=== PATIENT | male | born 1990 | race Caucasian/White ===

== ENCOUNTER 2018-11-26 16:29 | Emergency (ER) ==
--- NOTE | 2018-11-26 18:14 | RAD ---
RIGHT HAND: 11/26/18 Three views. HISTORY: Injury to hand. Carpals appear unremarkable. Metacarpals and phalanges appear intact. IMPRESSION: No acute fracture identified. POS: [facility]
== END 2018-11-26 17:50 | disposition home or self-care (01) ==
LOC: ERS 16:29
DX: S61.212A Laceration without foreign body of right middle finger without damage to nail, initial encounter (principal); W25.XXXA Contact with sharp glass, initial encounter

== ENCOUNTER 2019-02-13 14:34 | Emergency (ER) | payer SELFPAY ==
[2019-02-13 15:00] LABS: Hemoglobin 15.4 g/dL (14.0-18.0); Mean Corpuscular Hemoglobin 30.2 pg (27.0-31.0); Mean Corpuscular Volume 88.6 fL (78.0-98.0); Mean Platelet Volume 5.6 fL (7.4-10.4); Platelet Count 414 thou/uL (130-400); RBC Distribution Width 13.1 % (11.5-14.5); Red Blood Cell (RBC) Count 5.11 mill/uL (4.70-6.10); White Blood Cell (WBC) Count 25.4 thou/uL (4.8-10.8)
--- NOTE | 2019-02-13 15:14 | RAD ---
PORTABLE CHEST ONE VIEW: 02/13/2019 2:52 p.m. HISTORY: Chest pain. FINDINGS: The heart size is normal. The lungs are expanded without focal areas of consolidation, pneumothorace s, or pleural effusions. IMPRESSION: No radiographic evidence of acute cardiopulmonary process. POS: [facility]
[2019-02-13 15:21] LABS: ALT (SGPT) 72 U/L (8-55); AST (SGOT) 130 U/L (5-34); Albumin 5.4 g/dL (3.5-5.0); Alkaline Phosphatase 90 U/L (40-150); Anion Gap 22 mmol/L (10-20); BUN (Urea Nitrogen) 27 mg/dL (8.9-20.6); Bilirubin, Total 1.8 mg/dL (0.2-1.2); Calc. Creatinine Clearance 0 mL/min (70-130); Calcium 10.1 mg/dL (7.8-10.44); Carbon Dioxide 22 mmol/L (22-29); Chloride 97 mmol/L (98-107); Estimated GFR-MDRD 46; Globulin 2.5 g/dL (2.4-3.5); Glucose 91 mg/dL (70-105); Lipase 23 U/L (8-78); Potassium 4.7 mmol/L (3.5-5.1); Protein, Total 7.9 g/dL (6.0-8.3); Sodium 136 mmol/L (136-145)
[2019-02-13 15:29] LABS: Band 12 % (5-11); Lymphocytes 6 % (21-51); MDiff Complete? YES; Monocytes 6 % (0-10); Neutrophil 76 % (42-75); Platelet Morphology Comment Appears Increased; Polychromasia SLIGHT = 2-3 cells (100X) (0-2/hpf)
[2019-02-13 15:33] LABS: CK (CPK) 5041 U/L (30-200)
[2019-02-13 15:48] LABS: CKMB 26.7 ng/mL (0-6.6)
--- NOTE | 2019-02-13 16:16 | ULT ---
RIGHT UPPER QUADRANT ULTRASOUND: 02/13/19 HISTORY: Abdominal pain. FINDINGS: The liver, gallbladder, right kidney and pancreas appear normal. The common duct measures 3 mm in winnie meter. No free fluid is seen in Le's pouch. IMPRESSION: Normal exam. POS: [facility]
[2019-02-13] MEDS ORDERED: hydrOXYzine 25 MG TAB ONE (16:18)
[2019-02-13 19:01] LABS: #Lymphocytes 2.6 thou/uL (1.20-3.40); #Monocytes 1.3 thou/uL (0.11-0.59); #Neutrophils 13.5 thou/uL (1.40-6.50); %Basophils 0.1 % (0.0-1.0); %Eosinophils 0.3 % (0.0-10.0); %Monocytes 7.3 % (0.0-10.0); %Neutrophils 77.2 % (42.0-75.0); Hemoglobin 13.6 g/dL (14.0-18.0); Mean Corpuscular HGB CONC 36.1 g/dL (32.0-36.0); Mean Corpuscular Volume 88.7 fL (78.0-98.0); Mean Platelet Volume 5.7 fL (7.4-10.4); Platelet Count 361 thou/uL (130-400); RBC Distribution Width 12.8 % (11.5-14.5); Red Blood Cell (RBC) Count 4.26 mill/uL (4.70-6.10); White Blood Cell (WBC) Count 17.5 thou/uL (4.8-10.8)
[2019-02-13 19:06] LABS: Bacteria/HPF None Seen HPF (None Seen); Bilirubin Negative (Negative); Blood, Urine Trace (Negative); Clarity Turbid (Clear); Glucose, Urine (Dipstick) Normal (Negative); Leukocyte 25 Leu/uL (Negative); Nitrite Negative (Negative); Protein, Urine (Dipstick) 30 mg/dL (Neg-Trace); RBC/HPF 0-3 HPF (0-3); Squamous Epithelial 0-3 HPF (0-3); Urobilinogen Normal mg/dL (Less than 2); WBC/HPF 21-50 HPF (0-3)
[2019-02-13 19:27] LABS: ALT (SGPT) 58 U/L (8-55); AST (SGOT) 96 U/L (5-34); Albumin 4.2 g/dL (3.5-5.0); Alkaline Phosphatase 70 U/L (40-150); Anion Gap 15 mmol/L (10-20); BUN (Urea Nitrogen) 27 mg/dL (8.9-20.6); Bilirubin, Total 1.4 mg/dL (0.2-1.2); CK (CPK) 3487 U/L (30-200); Calc. Creatinine Clearance 0 mL/min (70-130); Calcium 8.6 mg/dL (7.8-10.44); Carbon Dioxide 22 mmol/L (22-29); Chloride 107 mmol/L (98-107); Estimated GFR-MDRD 69; Glucose 137 mg/dL (70-105); Potassium 3.6 mmol/L (3.5-5.1); Protein, Total 6.2 g/dL (6.0-8.3); Sodium 140 mmol/L (136-145); Troponin I 0.072 ng/mL (< 0.028)
[2019-02-16 04:53] LABS: Chlam.trachomatis by PCR,Urine DETECTED (NotDetected)
== END 2019-02-13 20:20 | disposition home or self-care (01) ==
LOC: ERS 14:34
DX: R07.2 Precordial pain (principal); F41.9 Anxiety disorder, unspecified; F32.9 Major depressive disorder, single episode, unspecified
CPT/HCPCS: 36415; 71045; 76705; 80053; 81003; 81015; 82550; 82553; 83690; 83880; 84484; 85025; 87086; 87491; 87591; 93005; 96360; 96361

== ENCOUNTER 2019-07-20 22:57 | Inpatient (IN) | payer SELFPAY ==
[2019-07-20 23:34] LABS: Bacteria/HPF None Seen HPF (None Seen); Bilirubin Negative (Negative); Blood, Urine Negative (Negative); Clarity Extra Turbid (Clear); Glucose, Urine (Dipstick) Normal (Negative); Leukocyte Negative Leu/uL (Negative); Nitrite Negative (Negative); Protein, Urine (Dipstick) 30 mg/dL (Neg-Trace); RBC/HPF 0-3 HPF (0-3); Squamous Epithelial None Seen HPF (0-3); Urobilinogen Normal mg/dL (Less than 2)
[2019-07-20 23:37] LABS: #Basophils 0.1 thou/uL (0.0-0.2); #Eosinphils 0.2 thou/uL (0.0-0.7); #Lymphocytes 2.8 thou/uL (1.20-3.40); #Monocytes 1.1 thou/uL (0.11-0.59); #Neutrophils 7.1 thou/uL (1.40-6.50); %Basophils 0.5 % (0.0-1.0); %Eosinophils 1.5 % (0.0-10.0); %Lymphocytes 24.9 % (21.0-51.0); %Monocytes 9.6 % (0.0-10.0); %Neutrophils 63.5 % (42.0-75.0); Hemoglobin 16.3 g/dL (14.0-18.0); Mean Corpuscular HGB CONC 33.5 g/dL (32.0-36.0); Mean Corpuscular Hemoglobin 29.5 pg (27.0-31.0); Mean Corpuscular Volume 88.2 fL (78.0-98.0); Mean Platelet Volume 5.6 fL (7.4-10.4); Platelet Count 416 thou/uL (130-400); RBC Distribution Width 13.3 % (11.5-14.5); Red Blood Cell (RBC) Count 5.52 mill/uL (4.70-6.10); White Blood Cell (WBC) Count 11.2 thou/uL (4.8-10.8)
--- NOTE | 2019-07-20 23:42 | RAD ---
Exam:2 views right elbow HISTORY: Evaluate for foreign body COMPARISON: None FINDINGS: No joint effusion. Preserved joint spaces. No fracture. No malalignment. On the lateral pro jection, there does appear to be a linear density in the soft tissues at the level of the antecubital fossa measuring 0.5 cm. Possibility of a small metallic foreign body is raised IMPRESSION: Possible small metallic foreign body as described above.
[2019-07-20 23:53] LABS: WBC/HPF 0-3 HPF (0-3)
[2019-07-20 23:54] LABS: Manual Microscopic Reviewed? No Path Casts Seen
[2019-07-20 23:55] LABS: Acetaminophen Less than 6.0 mcg/mL (10.0-30.0); Alcohol Less than 10 mg/dL (Less than 10); Salicylate Less than 8.0 mg/dL (15.0-30.0)
[2019-07-20 23:56] LABS: ALT (SGPT) 33 U/L (8-55); AST (SGOT) 74 U/L (5-34); Albumin 5.1 g/dL (3.5-5.0); Alkaline Phosphatase 92 U/L (40-110); Anion Gap 15 mmol/L (10-20); BUN (Urea Nitrogen) 14 mg/dL (8.9-20.6); CK (CPK) 3220 U/L (30-200); Calc. Creatinine Clearance 0 mL/min (70-130); Calcium 10.1 mg/dL (7.8-10.44); Carbon Dioxide 27 mmol/L (22-29); Chloride 101 mmol/L (98-107); Estimated GFR-MDRD 82; Glucose 98 mg/dL (70-105); Potassium 3.7 mmol/L (3.5-5.1); Protein, Total 8.1 g/dL (6.0-8.3); Sodium 139 mmol/L (136-145)
[2019-07-20 23:58] LABS: Amphetamine Detected (NotDetected); Medtox Reader # READER 1; Methamphetamine Detected (NotDetected); THC/Cannabinoid Screen Detected (NotDetected)
[2019-07-20 23:59] LABS: Barbiturates Screen Not Detected (NotDetected); Benzodiazepine Screen Not Detected (NotDetected); Cocaine Metabolite Screen Not Detected (NotDetected); Medtox Control Line Valid? VALID (VALID); Methadone Not Detected (NotDetected); Opiate Screen Not Detected (NotDetected); Oxycodone Screen Not Detected (NotDetected); Phencyclidine (PCP) Not Detected (NotDetected); Tricyclic Screen Not Detected (NotDetected)
[2019-07-21 11:03] VITALS: BMI 19.8
[2019-07-21] MEDS ORDERED: Senokot S 8.6-50 MG TAB PO PRN (11:15)
[2019-07-21] MEDS ORDERED: Ondansetron PF 4 MG/2 ML Vial IVP PRN (11:15)
[2019-07-21] MEDS ORDERED: Bisacodyl 5 MG TAB PO PRN (11:15)
[2019-07-21] MEDS ORDERED: Loperamide HCl 2 MG CAP PO PRN (11:15)
[2019-07-21] MEDS ORDERED: Loperamide HCl 2 MG CAP PO SCH (11:30)
[2019-07-21] MEDS: Sodium Chloride 0.9% 1,000 ML IV SCH ×3 (15:38→23:53)
--- NOTE | 2019-07-21 15:51 | PDOC.HHP ---
Hospitalist HPI - History of Present Illness suicidal ideation History of Present Illness: This is a 28 year old male with history of depression who tried to commit suicide yesterday but injecting bleach and amphetamine into right arm yesterday morning. A couple hours later the patient states he had pain in his right arm and wasn't able to lift it up for a few hours. He also reports back pain that started yesterday as well that is still present. along with numbness in his legs and mild difficulty walking. He denies trouble urinating or defecating. He decided to come to the ER this morning because he was afraid that he had an infection going to his blood stream. He has some dizziness and lightheadedness. He also reports chills today. He denies sore throat or runny nose. THe patient currently has pain in his arm about 7/10. The patient has had previous suicide attempt in the past but not through injection. He was admitted to psychiatric facility and was prescribed buspar and trazodone but patient discontinued it on its own. He does not have psychiatrist or PCP. He states he has been feeling hopeless about life recently , is unemployed and is tired of hanging with the same crowd and injecting methamphetamine but he feels it is the only thing that keeps him alert. He has lost 10 pounds, reports normal appetite, denies excessive sleeping. ED Course: In the ED, labs showed CK level > 3000, WBC 11.2. Chest Xray was normal. EKG showed prolonged QT. Elbow Xray showed possible metallic foreign body. [facility] was consulted and recommended admission until medically cleared. Utox was positive for amphetamine, methamphetamine, and marijuana Hospitalist ROS - Review of Systems Constitutional: reports: chills Respiratory: reports: shortness of breath. denies: cough Cardiovascular: denies: chest pain, palpitations Gastrointestinal: reports: abdominal pain, other (one loose stool) Musculoskeletal: reports: arm pain (right arm), back pain. denies: neck pain, shoulder pain Skin: denies: rash, lesions, elisa Neurological: reports: numbness (in lower extremities). denies: weakness - Medication Medications: Active Medications Generic Name Dose Route Start Last Admin Trade Name Freq PRN Reason Stop Dose Admin Sodium Chloride 1,000 mls @ 250 mls/hr 07/21/19 15:15 07/21/19 15:38 Normal Saline 0.9% IV 1,000 mls .Q4H ELIZA Administration Hospitalist History - Past Medical History Other Medical History: None - Past Surgical History Other Surgical History: None - Family History Other Family History: Diabetes Dad has heart problems - Social History Tobacco Type: chewing tobacco (for over ten years) Alcohol: reports: Heavy (6-8 beers everyday) Drugs: reports: methamphetamine (patient uses three or four times a month. Also smokes it. Been doing it for years) Occupation: Currently not working. Patient dropped out after 5 months of college - Exam General Appearance: NAD, awake alert Eye: PERRL, anicteric sclera ENT: normocephalic atraumatic, no oropharyngeal lesions Neck: supple, no JVD Heart: RRR, no murmur, no gallops, no rubs Respiratory: CTAB, no wheezes, no rales, no ronchi Gastrointestinal: soft, non-tender, non-distended, normal bowel sounds, no palpable masses Extremities: no cyanosis, no clubbing, no edema Skin: normal turgor, no lesions, no rashes Neurological: normal sensation to touch, no focal deficits, no new deficit Musculoskeletal: normal tone, normal strength, no muscle wasting Hospitalist Results - Labs Result Diagrams: 07/20/19 23:27 07/20/19 23:27 Lab results: WBC 11.2 thou/uL (4.8-10.8) H 07/20/19 23:27 Hgb 16.3 g/dL (14.0-18.0) 07/20/19 23:27 Hct 48.7 % (42.0-52.0) 07/20/19 23:27 MCV 88.2 fL (78.0-98.0) 07/20/19 23:27 Plt Count 416 thou/uL (130-400) H 07/20/19 23:27 Neutrophils % 63.5 % (42.0-75.0) 07/20/19 23:27 Sodium 139 mmol/L (136-145) 07/20/19 23:27 Potassium 3.7 mmol/L (3.5-5.1) 07/20/19 23:27 Chloride 101 mmol/L (98-107) 07/20/19 23:27 Carbon Dioxide 27 mmol/L (22-29) 07/20/19 23:27 BUN 14 mg/dL (8.9-20.6) 07/20/19 23:27 Creatinine 1.07 mg/dL (0.7-1.3) 07/20/19 23:27 Glucose 98 mg/dL (70-105) 07/20/19 23:27 Calcium 10.1 mg/dL (7.8-10.44) 07/20/19 23:27 Total Bilirubin 1.0 mg/dL (0.2-1.2) 07/20/19 23:27 AST 74 U/L (5-34) H 07/20/19 23:27 ALT 33 U/L (8-55) 07/20/19 23:27 Alkaline Phosphatase 92 U/L (40-110) 07/20/19 23:27 Creatine Kinase 2138 U/L (30-200) H 07/21/19 05:44 Serum Total Protein 8.1 g/dL (6.0-8.3) 07/20/19 23:27 Albumin 5.1 g/dL (3.5-5.0) H 07/20/19 23:27 Urine Ketones Negative mg/dL (Negative) 07/20/19 23:08 Urine Blood Negative (Negative) 07/20/19 23:08 Urine Nitrite Negative (Negative) 07/20/19 23:08 Ur Leukocyte Esterase Negative Melida/uL (Negative) 07/20/19 23:08 Urine RBC 0-3 HPF (0-3) 07/20/19 23:08 Urine WBC 0-3 HPF (0-3) 07/20/19 23:08 Ur Squamous Epith Cells None Seen HPF (0-3) 07/20/19 23:08 Urine Bacteria None Seen HPF (None Seen) 07/20/19 23:08 - EKG Interpretation EKG: incomplete RBBB, prolonged QT Hospitalist H&P A/P - Plan Plan: This is 28 year old male who tried to commit suicide by injecting bleach and amphetamine into his right arm, admitted for rhabdo Rhabdomyolysis - CK level downtrending to 2138. Continue IV fluids 250/hour - check CK level in am Transaminitis - likely from rhabdo - check hepatitis panel #Methamphetamine abuse #Depression with suicidal ideation #Tobacco abuse #Alcohol abuse #Marijuana abuse - will place on ROMIE protocol - start thiamine and folic acid - [facility] consulted, patient will most likely go to inpatient psych - defer antidepressant to [facility] - check HIV test Metallic foreign body in right elbow - general surgery consulted, nothing to do for onw Leukocytosis - WBC 11.2, will recheck in am, chest X ray and UA normal Code status: full code
[2019-07-21] MEDS ORDERED: Acetaminophen 325 MG TAB PO PRN (15:54)
[2019-07-21 17:46] LABS: HBCM Index 0.09 S/CO (0-0.79); HIV (1/2) Antibody/Antigen Non-Reactive (NonReactive); HIV 1/2 INDEX 0.12 S/CO (<1.00); Hep A IgM AB Non-Reactive (NonReactive); Hep A IgM S/CO 0.09 S/CO (0-0.79); Hep B Surf Ag Non-Reactive S/CO (NonReactive); Hep C IgG Ab Non-Reactive (NonReactive); Hep C Index 0.13 S/CO (0-0.79); Hepatitis B Core IgM Abs Non-Reactive (NonReactive)
[2019-07-21] MEDS: Lorazepam 1 MG TAB PO PRN ×2 (18:06→22:31)
--- NOTE | 2019-07-21 23:03 | CON ---
DATE OF CONSULTATION: HISTORY OF PRESENT ILLNESS: We are seeing the patient in consultation for a small metallic foreign body in his left antecubital fossa. The patient reportedly was attempting to harm himself and used a damaged insulin needle to attempt to inject something into his vein, he was not successful. When he removed the syringe, the needle broke off and left behind a 5 mm small foreign body. The patient has no pain at the site. No redness, erythema, or discharge. The patient has had no reported fevers. PHYSICAL EXAMINATION: VITAL SIGNS: Stable. The patient is afebrile. GENERAL: The patient is very pleasant and was very relieved when I told him that this did not require any surgery and he was not in danger of it embolizing to anywhere. EXTREMITIES: The right forearm and antecubital fossa are nontender. Again, the patient has full range of motion without difficulty. He is neurovascularly intact distally. The patient did have his IV catheter placed on that side, which did not appear to be causing him any difficulty either. The foreign body is not palpable. IMAGING: Radiograph showed a possible small metallic foreign body measuring 0.5 cm. T ASSESSMENT: Retained small foreign body and right antecubital fossa. PLAN: 1. Conservative management. 2. Continue observation of the site. If any evidence of infection, we can be notified. 3. His radiographs were reviewed by myself and Dr. Blank and agree that it is extremely superficial, though with the very small size of it, likely being a 27-gauge or possibly 30-gauge caliber needle, attempting to retrieve this could be extensive and the risks do not outweigh the benefit. Again, this was discussed with the patient who was relieved that surgical intervention was not needed. 4. We can be reconsulted any time should the need arise. Job ID: [id number] [facility]
[2019-07-22] MEDS: Sodium Chloride 0.9% 1,000 ML IV SCH ×5 (03:54→19:24)
[2019-07-22 06:13] LABS: #Eosinphils 0.2 thou/uL (0.0-0.7); #Lymphocytes 2.7 thou/uL (1.20-3.40); #Monocytes 0.6 thou/uL (0.11-0.59); #Neutrophils 4.7 thou/uL (1.40-6.50); %Basophils 0.3 % (0.0-1.0); %Eosinophils 2.2 % (0.0-10.0); %Monocytes 7.7 % (0.0-10.0); %Neutrophils 56.8 % (42.0-75.0); Hemoglobin 13.1 g/dL (14.0-18.0); Mean Corpuscular HGB CONC 32.7 g/dL (32.0-36.0); Mean Corpuscular Hemoglobin 29.3 pg (27.0-31.0); Mean Corpuscular Volume 89.5 fL (78.0-98.0); Mean Platelet Volume 5.8 fL (7.4-10.4); Platelet Count 271 thou/uL (130-400); RBC Distribution Width 13.4 % (11.5-14.5); Red Blood Cell (RBC) Count 4.48 mill/uL (4.70-6.10); White Blood Cell (WBC) Count 8.3 thou/uL (4.8-10.8)
[2019-07-22 06:22] LABS: Anion Gap 9 mmol/L (10-20); BUN (Urea Nitrogen) 11 mg/dL (8.9-20.6); Calc. Creatinine Clearance 154 mL/min (70-130); Calcium 7.9 mg/dL (7.8-10.44); Carbon Dioxide 24 mmol/L (22-29); Chloride 111 mmol/L (98-107); Estimated GFR-MDRD Greater than 90; Glucose 95 mg/dL (70-105); Potassium 3.9 mmol/L (3.5-5.1); Sodium 140 mmol/L (136-145)
[2019-07-22] MEDS: Folic Acid 1 MG TAB PO SCH (08:03)
[2019-07-22] MEDS: Thiamine 100 MG TAB PO SCH (08:04)
[2019-07-22 08:28] LABS: Iron 55 ug/dL (65-175); Iron Binding Capacity, Total 249 mcg/dL (261-462)
[2019-07-22 08:57] LABS: Ferritin 129.94 ng/mL (22-322)
[2019-07-22] MEDS ORDERED: FLU VACC QS2019-20(6MOS UP)/PF 60 MCG/0.5 ML SYRINGE IM ONE (09:00)
--- NOTE | 2019-07-22 13:58 | DIS ---
DATE OF ADMISSION: 07/21/2019 DATE OF DISCHARGE: 07/21/2019 DISCHARGE DIAGNOSES: Suicidal ideation, rhabdomyolysis, leukocytosis, B12 deficiency anemia, folate-deficiency anemia, amphetamine abuse, alcohol abuse, tobacco abuse, presence of metallic foreign body in right antecubital fossa. CONSULTATIONS: Frankie Puckett with General surgery, [facility]. PROCEDURES: None. BRIEF HISTORY OF PRESENT ILLNESS: This is a 28-year-old male with a past medical history of depression, alcohol abuse, tobacco abuse, amphetamine abuse, marijuana abuse, who presented to the emergency room after a suicide attempt. The patient states that he had injected bleach and amphetamine into his right arm. A few hours later, he was unable to lift up his arm. He also had reported back pain along with numbness in his legs and difficulty walking. He presented to the ER due to fears that he had an infection going to his blood stream. The patient reports previous suicide attempt in the past and was hospitalized at a psychiatric facility. He was supposed to be taking BuSpar and trazodone, however, discontinued these on his own. He does not have any PCP. Upon presentation to the ER, the patient had a CK level greater than 3000, white blood cell count of 11.2, normal chest x-ray. His elbow x-ray showed a possible metallic foreign body in the antecubital fossa. The patient's U-tox was positive for amphetamine, methamphetamine, and marijuana. The patient was admitted for rhabdomyolysis. HOSPITAL COURSE: Rhabdomyolysis: The patient had a CK level of greater than 3000 on admission, he was hydrated with IV fluids at 250/hour. Repeat CK on the day of discharge is 595. The patient was encouraged to drink 2 L of fluid a day. IV fluids were discontinued. The patient has adequate urine output. Transaminitis: The patient had an AST of 74 on admission. This is most likely secondary to rhabdomyolysis. The patient denied any abdominal pain, nausea, or vomiting. Hepatitis panel was checked, which was normal. This could be repeated as this also may be secondary to alcohol abuse given that his AST to ALT ratio is greater than 2:1. This can be followed with his PCP as an outpatient. Methamphetamine abuse/depression with suicidal ideation/tobacco abuse/alcohol abuse/marijuana abuse: The patient was admitted for suicidal ideation. He reports smoking half a pack of cigarettes a day. He drinks 6 to 8 beers daily. He also injects and smokes methamphetamine 2 to 4 times a month. The patient had a U-tox done, which tested positive for marijuana, amphetamine, and methamphetamine. He was started on ASE protocol and did not have any withdrawal symptoms. He was started on thiamine and folic acid empirically. TSH was normal. [facility] was consulted and the patient will be discharged to an inpatient psych facility. Patient still reported suicidal ideation on discharge. HIV testing was done and was negative. Metallic foreign body in the right elbow: General Surgery was consulted due to findings of foreign body on his elbow x-ray. This was not palpable on exam, therefore, they did not feel there was any utility in surgically intervening and looking for it. This should most likely be resorbed by the body on its own, however, there is no guarantee that the needle may not move. If the patient were to develop any signs of hypotension, excessive bleeding, then the patient should be brought back to the ER for concern of an arterial puncture. Leukocytosis: The patient had a white count of 11.2, which came down to 8.3 on the day of discharge. There were no signs of infection. UA was negative. Folate and B12 deficiency anemia: The patient had a hemoglobin of 13.1 on the . Folate level was 3.4. Vitamin B12 was 209. The patient will be discharged on vitamin B12 and folate supplements. He should follow up with PCP and have these levels rechecked in a month. DISCHARGE PHYSICAL EXAMINATION: VITAL SIGNS: Temperature 97.3, heart rate 50, respiratory rate 16, O2 saturation 98% on room air, and blood pressure 121/73. GENERAL: The patient is alert, awake, and oriented x3. He does have a flat affect. CVS: Regular rate and rhythm with no murmurs, rubs, or gallops. LUNGS: Clear to auscultation bilaterally. ABDOMEN: Positive bowel sounds, soft, nontender, and nondistended. EXTREMITIES: No edema. ARMS: There is no palpable mass felt in his elbow. NEUROLOGIC: Cranial nerves 2 through 12 are intact. The patient has 5/5 strength in his upper and lower extremities and normal sensation in all 4 extremities. DISCHARGE INSTRUCTIONS: The patient will be discharged to an inpatient psych facility at [facility]. He should follow up with his PCP in a week and have his vitamin B12 and folate levels rechecked. He should also have repeat LFTs done as an outpatient. DISCHARGE MEDICATIONS: 1. Vitamin B12 of 2000 mcg p.o. daily. 2. Folic acid 1 mg p.o. daily. 3. Nicotine patch 1 each daily. 4. Thiamine 100 mg p.o. daily. Job ID: [id number] [facility]
[2019-07-22] MEDS: Lorazepam 1 MG TAB PO PRN ×2 (15:44→20:33)
--- NOTE | 2019-07-22 23:34 | PDOC.HOSPP ---
- Subjective Encounter Date: 07/22/19 Encounter Time: 11:00 Subjective: arm pain better . still suicidal but not homicidal - Objective Vital Signs & Weight: Vital Signs (12 hours) Temp Pulse Resp BP Pulse Ox 07/22/19 20:00 98 07/22/19 19:24 96.3 F L 66 20 135/78 98 Weight Admit Weight 150 lb Weight 150 lb I&O: 07/21/19 07/22/19 07/23/19 06:59 06:59 06:59 Intake Total 1320 Balance 1320 Result Diagrams: 07/22/19 05:31 07/22/19 05:31 Hospitalist ROS - Review of Systems Respiratory: denies: cough, dry, shortness of breath, hemoptysis, SOB with excertion, pleuritic pain, sputum, wheezing, other - Medication Medications: Active Medications Generic Name Dose Route Start Last Admin Trade Name Freq PRN Reason Stop Dose Admin Acetaminophen 650 mg 07/21/19 15:54 07/22/19 03:54 Tylenol PO 650 mg Q6H PRN Administration Moderate Pain (4-6) Folic Acid 1 mg 07/22/19 09:00 07/22/19 08:03 Folvite PO 1 mg DAILY ELIZA Administration Sodium Chloride 1,000 mls @ 250 mls/hr 07/21/19 15:15 07/22/19 19:24 Normal Saline 0.9% IV Not Given .Q4H ELIZA Lorazepam 1 mg 07/21/19 16:09 07/22/19 20:33 Ativan PO 1 mg Q4H PRN Administration Anxiety/Agitation Thiamine HCl 100 mg 07/22/19 09:00 07/22/19 08:04 Thiamine PO 100 mg DAILY ELIZA Administration - Exam General Appearance: NAD, awake alert Extremities: no edema Skin: normal turgor, no lesions, no rashes Neurological: cranial nerve grossly intact, normal sensation to touch, no weakness Hosp A/P - Plan this is 28 year old admitted for rhabdo from suicide attempt Suicide attempt - [facility] evaluated and patient candidate for inpatient psych - cleared for dc Rhabdomyolysis - ck down to 500 - dc fluids - encourage oral intake Vitamin B12 and folate deficiency anemia - start folate and b12 supplements Transaminitis - likely from alcoholism - no abd pain methamphetamine/tobacco/marijuana abuse - needs outpt counseling - nicotine patch - Hiv and hep c test negative stable for dc today to [facility] facility
[2019-07-23] MEDS: Sodium Chloride 0.9% 1,000 ML IV SCH ×3 (02:03→09:13)
[2019-07-23 07:21] VITALS: BP 116/70; TEMP 98.2
[2019-07-23 07:38] LABS: Hemoglobin 14.5 g/dL (14.0-18.0); Mean Corpuscular HGB CONC 33.5 g/dL (32.0-36.0); Mean Corpuscular Hemoglobin 29.9 pg (27.0-31.0); Mean Corpuscular Volume 89.3 fL (78.0-98.0); Mean Platelet Volume 5.6 fL (7.4-10.4); Platelet Count 304 thou/uL (130-400); RBC Distribution Width 13.2 % (11.5-14.5); Red Blood Cell (RBC) Count 4.84 mill/uL (4.70-6.10); White Blood Cell (WBC) Count 8.2 thou/uL (4.8-10.8)
[2019-07-23 08:01] LABS: ALT (SGPT) 20 U/L (8-55); AST (SGOT) 19 U/L (5-34); Albumin 3.9 g/dL (3.5-5.0); Alkaline Phosphatase 64 U/L (40-110); Bilirubin, Direct 0.2 mg/dL (0.1-0.3); Bilirubin, Total 0.4 mg/dL (0.2-1.2); CK (CPK) 265 U/L (30-200); Protein, Total 6.2 g/dL (6.0-8.3)
[2019-07-23] MEDS ORDERED: Cyanocobalamin (Vitamin B-12) 1,000 MCG TAB PO SCH (09:00)
[2019-07-23] MEDS: Folic Acid 1 MG TAB PO SCH (09:14)
[2019-07-23] MEDS: Thiamine 100 MG TAB PO SCH (09:14)
[2019-07-23] MEDS: Lorazepam 1 MG TAB PO PRN (09:20)
== END 2019-07-23 11:01 | DRG 918 ==
LOC: ERS 22:57 → T4-B 07-21 08:45
PROVIDERS: ADMIT Internal Medicine; ATTEND Internal Medicine
DX: T43.622A Poisoning by amphetamines, intentional self-harm, initial encounter (principal); M62.82 Rhabdomyolysis; T54.92XA Toxic effect of unspecified corrosive substance, intentional self-harm, initial encounter; F15.10 Other stimulant abuse, uncomplicated; F10.10 Alcohol abuse, uncomplicated; F17.220 Nicotine dependence, chewing tobacco, uncomplicated; F32.9 Major depressive disorder, single episode, unspecified; D72.829 Elevated white blood cell count, unspecified; F12.10 Cannabis abuse, uncomplicated; M79.5 Residual foreign body in soft tissue; D52.9 Folate deficiency anemia, unspecified; D51.9 Vitamin B12 deficiency anemia, unspecified; R74.0 Nonspecific elevation of levels of transaminase and lactic acid dehydrogenase [LDH]
CPT/HCPCS: 36415; 80048; 80053; 80074; 80076; 80306; 80307; 81003; 81015; 82550; 82607; 82728; 82746; 83540; 83550; 84443; 85025; 85027; 87389; 93005; 96360; 96361